=== PATIENT | female | born 1985 | race Caucasian/White ===

== ENCOUNTER 2025-02-23 00:29 | Emergency (ER) | payer BC ==
[~2025-02-23] VITALS: Ht 165.1 cm; Wt 63.5 kg
[2025-02-23] MEDS ORDERED: ACETAMINOPHEN ES 500 MG TABLET ONE (01:34)
[2025-02-23] MEDS ORDERED: LIDOCAINE 5% (PATCH) 1 EA PATCH TP ONE (01:34)
[2025-02-23] MEDS ORDERED: KETOROLAC TROMETHAMINE 15 MG/ML VIAL ONE (01:34)
[2025-02-23] MEDS: LIDOCAINE 5% (PATCH) 1 EA PATCH TP SCH (01:42)
[2025-02-23] MEDS: ACETAMINOPHEN ES 500 MG TABLET PO ONE (01:42)
[2025-02-23] MEDS ORDERED: LIDO30AD10 TP (01:48)
[2025-02-23] MEDS ORDERED: CYCL10TA9 PO (01:48)
[2025-02-23] MEDS ORDERED: KETO10TA2 PO (01:48)
[2025-02-23] MEDS ORDERED: ACET-2030 PO (01:48)
[2025-02-23 02:23] LABS: PREGNANCY TEST URINE QUAL NEGATIVE (NEGATIVE)
[2025-02-23] MEDS: KETOROLAC TROMETHAMINE 15 MG/ML VIAL IM ONE (02:28)
[2025-02-23 02:43] VITALS: BP 140/81; TEMP 98; O2SAT 98
== END 2025-02-23 02:46 | disposition home or self-care (01) ==
LOC: ER 00:30
DX: S13.4XXA Sprain of ligaments of cervical spine, initial encounter (principal); M54.9 Dorsalgia, unspecified; R51.9 Headache, unspecified; V43.52XA Car driver injured in collision with other type car in traffic accident, initial encounter; Y93.89 Activity, other specified; Y92.488 Other paved roadways as the place of occurrence of the external cause; Y99.8 Other external cause status
CPT/HCPCS: 99283; 96372; 84703; J1885